=== PATIENT | male | born 1950 | race Caucasian/White ===

== ENCOUNTER 2020-09-10 17:41 | Outpatient (REF) | payer MEDICARE, SELFPAY ==
[2020-09-10 18:05] LABS: HCT 51.4 % (40.0-50.0); HGB 17.8 g/dL (13.5-17.5); MCH 31.7 pg (27.0-33.0); MCHC 34.6 % (32.0-36.0); MCV 91.5 fL (80-95); MPV 10.4 fL (8.0-11.0); Platelet Count 216 10^3/uL (130-400); RBC 5.62 10^6/uL (4.36-5.78); RDW 12.2 % (11.8-14.1); RDW-SD 40.8 fL; WBC 7.03 10^3/uL (4.4-10.8)
[2020-09-10 18:07] LABS: ESR 3 mm//hr (0-20)
[2020-09-10 18:31] LABS: TSH 1.17 uIU/mL (0.36-3.74)
[2020-09-10 18:32] LABS: Folate > 20.0 ng/mL (8.6-20.0)
[2020-09-14 12:02] LABS: Syphilis Serology (RPR) Negative (Negative)
== END 2020-09-10 17:42 | disposition home or self-care (01) ==
LOC: NCHCN 17:41
PROVIDERS: PCP Specialist/Technologist Athletic Trainer; Visit Provider Nurse Practitioner Family
DX: R41.3 Other amnesia (principal)
CPT/HCPCS: 85027; 85652; 82746; 84443; 86592

== ENCOUNTER 2020-09-18 15:22 | Outpatient (REF) | payer MEDICARE, SELFPAY ==
[2020-09-18 19:42] LABS: Vitamin B12 322 pg/mL (193-986)
== END 2020-09-18 15:23 | disposition home or self-care (01) ==
LOC: NCHCN 15:22
PROVIDERS: PCP Specialist/Technologist Athletic Trainer; Visit Provider Nurse Practitioner Family
DX: R41.3 Other amnesia (principal)
CPT/HCPCS: 82607

== ENCOUNTER 2021-01-25 16:28 | Outpatient (REF) | payer MEDICARE, SELFPAY ==
[2021-01-25 20:20] LABS: Calculated LDL 83 mg/dL (<100); Cholesterol 148 mg/dL (<200); HDL Cholesterol 43 mg/dL (40-60); Triglyceride 111 mg/dL (<150)
== END 2021-01-25 16:29 | disposition home or self-care (01) ==
LOC: NCHCN 16:28
PROVIDERS: PCP Specialist/Technologist Athletic Trainer; Visit Provider Nurse Practitioner Family
DX: E78.5 Hyperlipidemia, unspecified (principal)
CPT/HCPCS: 80061

== ENCOUNTER 2021-02-08 16:30 | Outpatient (REF) | payer MEDICARE, SELFPAY ==
[2021-02-08 21:24] LABS: ALT 29 U/L (16-63); AST 22 U/L (15-37); Alkaline Phosphatase 89 U/L (46-116); Anion Gap 6.1 mmol/L (3-11); BUN 17 mg/dL (7-18); Bilirubin, Total 1.1 mg/dL (0.2-1.0); CO2 31.9 mmol/L (21.0-32.0); Calcium 9.3 mg/dL (8.5-10.1); Chloride 106 mmol/L (98-107); Glucose 91 mg/dL (74-106); Potassium 4.9 mmol/L (3.5-5.1); Sodium 144 mmol/L (136-145); Total Protein 7.1 g/dL (6.4-8.2)
== END 2021-02-08 16:31 | disposition home or self-care (01) ==
LOC: NCHCN 16:30
PROVIDERS: PCP Specialist/Technologist Athletic Trainer; Visit Provider Nurse Practitioner Family
DX: Z00.00 Encounter for general adult medical examination without abnormal findings (principal)
CPT/HCPCS: 80053

== ENCOUNTER 2021-09-06 14:20 | Outpatient (REF) | payer MEDICARE, SELFPAY ==
[2021-09-06 20:32] LABS: HCT 52.4 % (40.0-50.0); HGB 17.5 g/dL (13.5-17.5); MCH 30.9 pg (27.0-33.0); MCHC 33.4 % (32.0-36.0); MCV 92.6 fL (80-95); MPV 10.5 fL (8.0-11.0); Platelet Count 205 10^3/uL (130-400); RBC 5.66 10^6/uL (4.36-5.78); RDW 11.9 % (11.8-14.1); RDW-SD 40.8 fL; WBC 5.04 10^3/uL (4.4-10.8)
[2021-09-06 21:09] LABS: ALT 28 U/L (16-63); AST 21 U/L (15-37); Albumin 3.9 g/dL (3.4-5.0); Alkaline Phosphatase 85 U/L (46-116); Anion Gap 6.9 mmol/L (3-11); BUN 20 mg/dL (7-18); Bilirubin, Total 0.6 mg/dL (0.2-1.0); CO2 29.1 mmol/L (21.0-32.0); CREATININE 0.9 mg/dL (0.70-1.30); Calcium 9.1 mg/dL (8.5-10.1); Chloride 104 mmol/L (98-107); Glucose 108 mg/dL (74-106); Potassium 4.4 mmol/L (3.5-5.1); Sodium 140 mmol/L (136-145)
[2021-09-06 21:43] LABS: Calculated LDL 100 mg/dL (<100); Cholesterol 168 mg/dL (<200); HDL Cholesterol 49 mg/dL (40-60); Triglyceride 98 mg/dL (<150)
== END 2021-09-06 14:21 | disposition home or self-care (01) ==
LOC: NCHCN 14:20
PROVIDERS: PCP Specialist/Technologist Athletic Trainer; Visit Provider Nurse Practitioner Family
DX: E78.5 Hyperlipidemia, unspecified (principal)
CPT/HCPCS: 80053; 80061; 85027

== ENCOUNTER → 2022-12-29 08:39 | Outpatient (BNVA) | payer MEDICARE, MEDICAID, SELFPAY | PROVIDERS: PCP Nurse Practitioner Family; Referring Provider Nurse Practitioner Family; Visit Provider Nurse Practitioner Adult Health | DX: R41.3 Other amnesia (principal); F41.9 Anxiety disorder, unspecified; F32.A Depression, unspecified; G62.9 Polyneuropathy, unspecified; J44.9 Chronic obstructive pulmonary disease, unspecified | CPT/HCPCS: 99204 ==

== ENCOUNTER 2023-01-20 15:20 | Outpatient (REF) | payer MEDICARE, SELFPAY ==
[2023-01-20 19:09] LABS: Hemoglobin A1C 4.8 % (<5.7)
[2023-01-20 19:27] LABS: Vitamin B12 285 pg/mL (193-986)
[2023-01-23 12:45] LABS: Albumin g/dL 4.1 g/dL (3.6-5.2); Total Protein 6.9 g/dL (6.3-8.2)
== END 2023-01-20 15:21 | disposition home or self-care (01) ==
LOC: NCHCN 15:20
PROVIDERS: PCP Nurse Practitioner Family; Visit Provider Nurse Practitioner Family
DX: G60.9 Hereditary and idiopathic neuropathy, unspecified (principal); G31.84 Mild cognitive impairment of uncertain or unknown etiology; F06.4 Anxiety disorder due to known physiological condition; R73.09 Other abnormal glucose
CPT/HCPCS: 82607; 83036; 84165

== ENCOUNTER → 2023-02-06 01:08 | Outpatient (CLI) | payer MEDICARE, MEDICAID, SELFPAY ==
--- NOTE | 2023-02-06 08:00 | DI.MRI_ITS ---
Exam(s) MR BRAIN WO EXAM: MR BRAIN WO CLINICAL HISTORY: worsening memory, ?paranoia,r41.3 TECHNIQUE: Multiplanar multisequence MRI of the brain was performed. COMPARISON: No exams were available for comparison FINDINGS: CEREBRAL PARENCHYMA: There is no evidence of intracranial hemorrhage, mass effect, or shift of midline structures. There are no extra-axial fluid collections. Ventricles are not enlarged or shifted. There is no significant focal signal abnormality in the cerebellar hemispheres nor within the aiyana, m idbrain, and thalami. There is no abnormal signal abnormality in the periventricular white matter. There is no significant focal signal abnormality evident on diffusion imaging to suggest acute ischem ic event. SWI: No microhemorrhages evident. PITUITARY GLAND: No mass nor parasellar abnormality. No obvious abnormality in the cavernous sinuses. FLOW VOIDS: The expected flow void are noted. No evidence of obvious aneurysm nor obvious vascular ma lformation. PARANASAL SINUSES: The visualized paranasal sinuses appear unremarkable. No obvious finding ORBITS: No obvious findings. IMPRESSION: No significant focal intracranial findings on this noninfused MRI scan of the brain. DATA REPOSITORY:
== END ==
PROVIDERS: PCP Nurse Practitioner Family; Visit Provider Nurse Practitioner Adult Health
DX: R41.3 Other amnesia (principal)
CPT/HCPCS: 70551

== ENCOUNTER → 2023-03-15 14:52 | Outpatient (BNVA) | payer MEDICARE, MEDICAID, SELFPAY | PROVIDERS: PCP Nurse Practitioner Family; Referring Provider Nurse Practitioner Family; Visit Provider Nurse Practitioner Adult Health | DX: R41.3 Other amnesia (principal); E53.8 Deficiency of other specified B group vitamins; H91.93 Unspecified hearing loss, bilateral | CPT/HCPCS: 99214 ==

== ENCOUNTER 2023-05-04 14:13 | Outpatient (REF) | payer MEDICARE, MEDICAID, SELFPAY ==
[2023-05-04 20:48] LABS: Vitamin B12 708 pg/mL (193-986)
== END 2023-05-04 14:14 | disposition home or self-care (01) ==
LOC: NCHCN 14:13
PROVIDERS: PCP Nurse Practitioner Family; Visit Provider Nurse Practitioner Family
DX: E53.8 Deficiency of other specified B group vitamins (principal); R41.3 Other amnesia
CPT/HCPCS: 82607

== ENCOUNTER → 2023-06-30 01:06 | Outpatient (CLI) | payer MEDICARE, MEDICAID, SELFPAY ==
--- NOTE | 2023-06-30 | DI.CTLCSR_ITS ---
Exam(s) CT CHEST LUNG CANCER SCREEN EXAM: CT CHEST LUNG CANCER SCREEN CLINICAL HISTORY: TOBACCO DEPENDENCE SYNDROME, CURRENT SMOKER, F17.210, SCREENING FOR LUNG CA TECHNIQUE: Imaging Protocol: Axial computed tomography images with coronal and sagittal reformatted images were created and reviewed COMPARISON: CR RIGHT RIBS TO INCLUDE CXR from 08/01/2017 FINDINGS: Tracheobronchial tree: Patent where visualized. Pulmonary parenchyma: No consolidation or dominant measurable mass. No architectural distortion. Lung Nodules: None. Mediastinum and Jenna: No dominant adenopathy or fluid collection. The esophagus is unremarkable. Thyroid gland: Unremarkable. Lymph nodes: Unremarkable. Pleura: No effusion or pneumothorax. Heart: The heart is not dilated. Mild coronary artery calcification. No pericardial effusion. Aorta: Thoracic aorta non-dilated.Atherosclerosis. Upper abdomen: There is a cyst in the liver. The patient is status post cholecystectomy. Soft Tissues: Unremarkable. Bones: Within normal limits. IMPRESSION: No pulmonary nodules. Lung RADS Cat 1 - Negative: No nodules and definitely benign nodules Lung-RADS 1.0 CATEGORIES: Category 0 - Prior chest CT exam(s) being located for comparison. Category 1 - Annual screening in 12 months. No nodules or definitely benign nodules. Category 2 - Annual screening in 12 months. Benign appearance. Nodules with low likelihood of becomin g active cancer. Category 3 - 6-month follow-up. Probably benign. Short-term follow-up suggested. Nodules with low lik elihood of becoming active cancer. Category 4A - 3-month follow-up and CT/PET if >8 mm in size. Suspicious finding. Findings which requi re additional testing. Category 4B - Findings which require additional testing and tissue sampling. Suspicious finding. Category 4X - Category 3 or 4 nodules with additional features or imaging findings that increases the suspicion of malignancy. Modifier S- Potentially clinically significant finding. (Non lung cancer) RADIATION DOSE DELIVERED: 80.82mGy.cm Total DLP 80.82mGy.cmTotal DLP DATA REPOSITORY: All CT scans at this facility are submitted to the National Radiology Data Registry (NRDR) Dose Index Registry (DIR) with the [employer] ([employer]). RADIATION OPTIMIZATION: All CT scans at this facility use at least one of these dose optimization te chniques: automated exposure control; mA and/or kV adjustment per patient size (includes targeted exa ms where dose is matched to clinical indication); or iterative reconstruction.
== END ==
PROVIDERS: PCP Nurse Practitioner Family; Visit Provider Nurse Practitioner Family
DX: F17.210 Nicotine dependence, cigarettes, uncomplicated (principal); Z12.2 Encounter for screening for malignant neoplasm of respiratory organs
CPT/HCPCS: 71271

== ENCOUNTER → 2023-07-18 04:30 | Outpatient (CLI) | payer MEDICARE, MEDICAID, SELFPAY ==
--- NOTE | 2023-07-18 | DI.US_ITS ---
Exam(s) US ABDOMEN LIMITED EXAM: US ABDOMEN LIMITED CLINICAL HISTORY: LIVER CYST,K76.89 TECHNIQUE: Ultrasound abdomen performed using standard protocol. COMPARISON: CT CT CHEST LUNG CANCER SCREEN from 06/30/2023 FINDINGS: There is no ascites evident. LIVER: There is a benign 2.5 x 2.0 x 1.6 cm solitary cyst in the liver. No other focal hepatic findi ngs. GALLBLADDER/BILIARY: Gallbladder surgically absent. The common hepatic duct isnot dilated, measuring 2-3mm at the level of ade hepatis. PANCREAS: There is no evidence of pancreatic mass nor dilatation of the pancreatic duct. RIGHT KIDNEY:No evidence of solid mass, calculus, nor hydronephrosis. No cortical cysts evident. IMPRESSION: 1. Gallbladder surgically absent. The biliary tree is not dilated. 2. There is a solitary benign 2.5 cm cyst in the liver. 3. No other significant ultrasound findings in the upper abdomen and there is no ascites. DATA REPOSITORY:
== END ==
PROVIDERS: PCP Nurse Practitioner Family; Visit Provider Nurse Practitioner Family
DX: K76.89 Other specified diseases of liver (principal)
CPT/HCPCS: 76705

== ENCOUNTER 2023-08-04 18:10 | Outpatient (REF) | payer MEDICARE, MEDICAID, SELFPAY ==
[2023-08-04 20:24] LABS: Vitamin B12 908 pg/mL (193-986)
== END 2023-08-04 18:11 | disposition home or self-care (01) ==
LOC: NCHCN 18:10
PROVIDERS: PCP Nurse Practitioner Family; Visit Provider Nurse Practitioner Family
DX: E53.8 Deficiency of other specified B group vitamins (principal)
CPT/HCPCS: 82607

== ENCOUNTER → 2023-09-13 14:00 | Outpatient (BNVA) | payer MEDICARE, SELFPAY | PROVIDERS: PCP Nurse Practitioner Family; Referring Provider Nurse Practitioner Family; Visit Provider Nurse Practitioner Adult Health | DX: F03.90 Unspecified dementia, unspecified severity, without behavioral disturbance, psychotic disturbance, mood disturbance, and anxiety (principal) | CPT/HCPCS: 99215 ==

== ENCOUNTER 2023-11-06 08:52 | Outpatient (REF) | payer MEDICARE, SELFPAY ==
[2023-11-06 17:00] LABS: ALT 30 U/L (16-63); AST 20 U/L (15-37); Albumin 3.6 g/dL (3.4-5.0); Alkaline Phosphatase 111 U/L (46-116); Anion Gap 9.5 mmol/L (3-11); BUN 18 mg/dL (7-18); Bilirubin, Total 0.8 mg/dL (0.2-1.0); CO2 27.5 mmol/L (21.0-32.0); CREATININE 0.9 mg/dL (0.70-1.30); Calcium 8.9 mg/dL (8.5-10.1); Chloride 105 mmol/L (98-107); Estimated GFR 90.18 (mL/min/1.73m2); Glucose 146 mg/dL (74-106); Potassium 3.7 mmol/L (3.5-5.1); Sodium 142 mmol/L (136-145); Total Protein 6.5 g/dL (6.4-8.2); Vitamin B12 1318 pg/mL (193-986)
== END 2023-11-06 08:53 | disposition home or self-care (01) ==
LOC: NCHCN 08:52
PROVIDERS: PCP Nurse Practitioner Family; Visit Provider Nurse Practitioner Family
DX: E78.5 Hyperlipidemia, unspecified (principal); E53.8 Deficiency of other specified B group vitamins
CPT/HCPCS: 80053; 82607

== ENCOUNTER 2024-05-03 17:13 | Outpatient (REF) | payer MEDICARE, SELFPAY ==
[2024-05-03 19:07] LABS: ALT 26 U/L (16-63); AST 29 U/L (15-37); Albumin 4.1 g/dL (3.4-5.0); Alkaline Phosphatase 101 U/L (46-116); Anion Gap 7.9 mmol/L (3-11); BUN 15 mg/dL (7-18); CO2 28.1 mmol/L (21.0-32.0); CREATININE 1.1 mg/dL (0.70-1.30); Calcium 9.5 mg/dL (8.5-10.1); Calculated LDL 78 mg/dL (<100); Chloride 107 mmol/L (98-107); Cholesterol 145 mg/dL (<200); Estimated GFR 70.88 (mL/min/1.73m2); Glucose 98 mg/dL (74-106); HDL Cholesterol 55 mg/dL (40-60); Potassium 3.9 mmol/L (3.5-5.1); Sodium 143 mmol/L (136-145); Total Protein 7.3 g/dL (6.4-8.2); Triglyceride 64 mg/dL (<150)
== END 2024-05-03 17:14 | disposition home or self-care (01) ==
LOC: NCHCN 17:13
PROVIDERS: PCP Nurse Practitioner Family; Visit Provider Nurse Practitioner Family
DX: E78.5 Hyperlipidemia, unspecified (principal)
CPT/HCPCS: 80053; 80061